=== PATIENT | female | born 2000 | race Caucasian/White ===

== ENCOUNTER 2022-12-06 15:48 | Inpatient (IN) ==
[2022-12-06 16:39] LABS: Appearance Urine Clear (Clear); Bacteria Urine Automated 1+ (Negative); Bilirubin Urine Negative (Negative); Blood Urine 1+ (Negative); Color Urine Yellow; Epithelial Cell Urine Auto >30 /lpf (0-5); Glucose Urine UA Negative (Negative); Ketones Urine Negative (Negative); Leukocyte Esterase Urine Negative (Negative); Nitrite Urine Negative (Negative); Protein Urine Negative (Negative); Specific Gravity Urine 1.017 (1.000-1.030); Urobilinogen Urine Negative (Negative)
--- NOTE | 2022-12-06 16:47 | Emergency Department Note ---
Impression & Plan Mood disorder, Suicidal ideation ED Provider Note INFORMANT: Patient ED PROVIDER(S): Yuval Queen MD CHIEF COMPLAINT: Suicidal ideation PLAN: Disposition: Admitted to [facility]. Condition: Good Outpatient prescription management: none Referral: None MEDICAL DECISION MAKING: Patient was evaluated. History of depression. Outpatient treatment with Zoloft has not been helping despite increase in dose. The patient had blood work obtained. Her wounds were minor. They were cleansed and bandaged. Patient's laboratory testing was unremarkable. Toxicology screen was negative. Patient was referred to [facility] mental health. Patient was excepted for inpatient psychiatric treatment. Patient issues were discussed with the ED psychiatric case aide. After review of the information above and other included data, I feel the patient is medically clear and requires inpatient psychiatric treatment. Triage Nursing notes reviewed and agree them. Vital Signs: reviewed and remarkable for no significant abnormalities Prior /Outside records reviewed: none Differential diagnosis: Mood disorder, infection, hypoglycemia, electrolyte abnormalities, cardiac sources, intracerebral event, toxicologic, trauma, neurologic, as well as other pathologies. Diagnostics, as interpreted by me: ECG: none Cardiac Monitoring: None Medical decision rules: none Imaging studies: Deferred HPI: The patient is a 22year old female who presents to the Emergency Room with complaints of suicidal ideation. This started last night and is from an attempt at cutting her wrist. Patient notes a history of depression. She had previous suicidal thoughts in the past. She has been on Zoloft and 2 months ago it was i ncreased from 100 to 125 mg by her outpatient provider. Unfortunately she has not felt improvement.. The patient also notes the following associated symptoms, increased sleep, low energy and initiative. The patient has found no relieving factors. Current pain is rated as 0/10. Pt denies LOC, headache, fevers, chills, diaphoresis, visual changes, neck pain, chest pain, breathing difficulties, nausea, vomiting, abdominal pain, back pain, melena, hematochezia, urinary symptoms, numbness, weakness, lymphadenopathy, rash, or other complaints. PAST MEDICAL HISTORY: See Below, depression, asthma PAST SURGICAL HISTORY: See Below, SOCIAL HISTORY: See Below, occasional alcohol HOME MEDICATIONS: See Below ALLERGIES: See Below VITALS: See Below PHYSICAL EXAMINATION: GENERAL: Awake, alert, depressed-appearing, in no distress HENT: Normocephalic, atraumatic. Oropharynx unremarkable. EYES: Normal conjunctiva. Sclera non-icteric. NECK: Inspection normal. Non-tender. Supple. No nuchal rigidity. FROM. No masses. RESPIRATORY: Clear to auscultation. No wheezes. No rales. Normal respiratory effort. CARDIAC: Normal rate. Normal rhythm. No murmurs. No rubs. Extremities warm and well perfused. Pulses equal. No JVD. GI: Soft, non-distended. No tenderness to palpation. No rebound or guarding. No masses. RECTAL: Deferred. MUSCULOSKELETAL: Superficial abrasions and scratches at both wrists. Nothing r equiring suturing or involvement of deep structures. Otherwise atraumatic. Chest examination reveals no tenderness. The back is symmetrical on inspection without obvious abnormality. There is no CVA tenderness to palpation. No joint edema. LOWER EXTREMITIES: Calves are equal size bilaterally and non-tender. No edema. No discoloration. NEURO: Normal sensorium. No sensory or motor deficits noted. SKIN: No rash or jaundice noted. PSYCH: Depressed mood and flat affect. Positive SI. No HI or delusions. Past Med/Surg History Social History Smoking Status: Never smoker Preferred Language: Bolivian Communication Ability: Effective Scow Hand Required: No Beliefs That Will Affect Care: None Feels Safe at Home: Yes Gender Identity: Female Assistive Devices: None Allergies Allergies Allergy/AdvReac Type Severity Reaction Status Date / Time dairy Allergy Uncoded 12/06/22 21:43 Home Meds Home Medications Medication Instructions Recorded Confirmed cetirizine 5 mg tablet 5 mg PO HS 12/06/22 12/06/22 sertraline 100 mg tablet (Zoloft) 125 mg PO HS 12/06/22 12/06/22 Results & Data (ED) Vital Signs Vital Signs - 24 hr 12/06/22 15:54 Temperature 36.6 C Temperature Source Temporal Artery Scan Pulse Rate 76 Respiratory Rate 20 Respiratory Effort / Characteristics Non-Labored Spontaneous Respiratory Depth Normal Blood Pressure 141/97 H Blood Pressure Mean 111 Pulse Oximetry 99 Oxygen Delivery Method Room Air Sepsis New/Unexplained Change in Mental Status N/A Sepsis Action Taken by Nursing No Action Required Laboratory Data 12/06/22 16:48 12/06/22 16:48 Lab Results 12/06/22 12/06/22 12/06/22 Range/Units 16:05 16:05 16:40 WBC (4.8-10.8) K/ul RBC (4.20-5.40) M/uL Hgb (12.0-16.0) g/dl Hct (37.0-47.0) % MCV (80.0-100.0) fL MCH (25.0-34.0) pg MCHC (32.0-36.0) g/dL RDW Std Deviation (36.4-46.3) fL RDW Coeff of Amanda (11.5-14.5) % Plt Count (130-400) K/uL MPV (9.4-12.4) fL Immature Gran % (Auto) % Neut % (Auto) % Lymph % (Auto) % [place] % (Auto) % Eos % (Auto) % Baso % (Auto) % Neut # (Auto) (1.40-6.50) K/uL Lymph # (Auto) (1.2-3.4) K/uL [place] # (Auto) (0.11-0.59) K/uL Eos # (Auto) (0-0.50) K/uL Baso # (Auto) (0-0.2) K/uL Immature Gran # (Auto) (0.01-0.20) K/uL Sodium (136-145) mmol/L Potassium (3.5-5.1) mmol/L Chloride (98-107) mmol/L Carbon Dioxide (21-32) mmol/L Anion Gap (3-11) BUN (6-23) mg/dl Creatinine (0.6-1.2) mg/dl Est Cr Clr Drug Dosing ml/min Est GFR ( Amer) ml/min Est GFR (Non-Af Amer) ml/min BUN/Creatinine Ratio (10-20) Glucose (70-99(Fasting)) mg/dl Calcium (8.5-10.1) mg/dl Total Bilirubin (0.2-1.0) mg/dl AST (13-39) U/L ALT (7-52) U/L Alkaline Phosphatase (34-104) U/L Total Protein (6.0-8.3) gm/dl Albumin (3.4-5.0) gm/dl Globulin (2.5-4.0) gm/dl Albumin/Globulin Ratio (0.9-2) TSH (0.300-4.500) uIu/ml HCG, Qual (Negative) Urine Color Yellow Urine Appearance Clear (Clear) Urine pH 7.0 (4.5-7.5) Ur Specific [place] 1.017 (1.000-1.030) Urine Protein Negative (Negative) Urine Glucose (UA) Negative (Negative) Urine Ketones Negative (Negative) Urine Blood 1+ H (Negative) Urine Nitrite Negative (Negative) Urine Bilirubin Negative (Negative) Urine Urobilinogen Negative (Negative) Ur Leukocyte Esterase Negative (Negative) Urine WBC (Auto) 1-5 (0-5) /hpf Urine RBC (Auto) 10-30 H (0-4) /hpf U Hyaline Cast (Auto) 1-5 (0-5) /lpf U Epithel Cells (Auto) >30 H (0-5) /lpf Urine Bacteria (Auto) 1+ H (Negative) Salicylates (3.0-30) mg/dl Urine Opiates Screen Neg (Neg) Ur Methadone, Qual Neg (Neg) Acetaminophen (10-30) ug/ml Urine Barbiturates Neg (Neg) Ur Phencyclidine (PCP) Neg (Neg) U Amphetamin/Meth Scrn Neg (Neg) MDMA (Ecstasy) Screen Neg (Neg) U Benzodiazepines Scrn Neg (Neg) Ur Cocaine Metabolite Neg (Neg) U Marijuana (THC) Screen Neg (Neg) Ethyl Alcohol mg/dL (<10.0) mg/dl SARS-CoV-2, RNA, NAAT NEGATIVE (NEGATIVE) 12/06/22 12/06/22 12/06/22 Range/Units 16:48 16:48 16:48 WBC 8.08 (4.8-10.8) K/ul RBC 4.59 (4.20-5.40) M/uL Hgb 13.3 (12.0-16.0) g/dl Hct 38.8 (37.0-47.0) % MCV 84.5 (80.0-100.0) fL MCH 29.0 (25.0-34.0) pg MCHC 34.3 (32.0-36.0) g/dL RDW Std Deviation 36.9 (36.4-46.3) fL RDW Coeff of Amanda 12.2 (11.5-14.5) % Plt Count 340 (130-400) K/uL MPV 9.2 L (9.4-12.4) fL Immature Gran % (Auto) 0.1 % Neut % (Auto) 68.4 % Lymph % (Auto) 22.6 % [place] % (Auto) 7.4 % Eos % (Auto) 1.1 % Baso % (Auto) 0.4 % Neut # (Auto) 5.52 (1.40-6.50) K/uL Lymph # (Auto) 1.83 (1.2-3.4) K/uL [place] # (Auto) 0.60 H (0.11-0.59) K/uL Eos # (Auto) 0.09 (0-0.50) K/uL Baso # (Auto) 0.03 (0-0.2) K/uL Immature Gran # (Auto) 0.01 (0.01-0.20) K/uL Sodium 140 (136-145) mmol/L Potassium 4.3 (3.5-5.1) mmol/L Chloride 105 (98-107) mmol/L Carbon Dioxide 29 (21-32) mmol/L Anion Gap 6 (3-11) BUN 6 (6-23) mg/dl Creatinine 0.59 L (0.6-1.2) mg/dl Est Cr Clr Drug Dosing 123.2 ml/min Est GFR ( Amer) > 150.0 ml/min Est GFR (Non-Af Amer) 131.0 ml/min BUN/Creatinine Ratio 10.2 (10-20) Glucose 94 (70-99(Fasting)) mg/dl Calcium 10.0 (8.5-10.1) mg/dl Total Bilirubin 0.6 (0.2-1.0) mg/dl AST 18 (13-39) U/L ALT 12 (7-52) U/L Alkaline Phosphatase 66 (34-104) U/L Total Protein 7.7 (6.0-8.3) gm/dl Albumin 4.9 (3.4-5.0) gm/dl Globulin 2.8 (2.5-4.0) gm/dl Albumin/Globulin Ratio 1.8 (0.9-2) TSH 1.020 (0.300-4.500) uIu/ml HCG, Qual (Negative) Urine Color Urine Appearance (Clear) Urine pH (4.5-7.5) Ur Specific [place] (1.000-1.030) Urine Protein (Negative) Urine Glucose (UA) (Negative) Urine Ketones (Negative) Urine Blood (Negative) Urine Nitrite (Negative) Urine Bilirubin (Negative) Urine Urobilinogen (Negative) Ur Leukocyte Esterase (Negative) Urine WBC (Auto) (0-5) /hpf Urine RBC (Auto) (0-4) /hpf U Hyaline Cast (Auto) (0-5) /lpf U Epithel Cells (Auto) (0-5) /lpf Urine Bacteria (Auto) (Negative) Salicylates (3.0-30) mg/dl Urine Opiates Screen (Neg) Ur Methadone, Qual (Neg) Acetaminophen (10-30) ug/ml Urine Barbiturates (Neg) Ur Phencyclidine (PCP) (Neg) U Amphetamin/Meth Scrn (Neg) MDMA (Ecstasy) Screen (Neg) U Benzodiazepines Scrn (Neg) Ur Cocaine Metabolite (Neg) U Marijuana (THC) Screen (Neg) Ethyl Alcohol mg/dL (<10.0) mg/dl SARS-CoV-2, RNA, NAAT (NEGATIVE) 12/06/22 12/06/22 12/06/22 Range/Units 16:48 16:48 16:48 WBC (4.8-10.8) K/ul RBC (4.20-5.40) M/uL Hgb (12.0-16.0) g/dl Hct (37.0-47.0) % MCV (80.0-100.0) fL MCH (25.0-34.0) pg MCHC (32.0-36.0) g/dL RDW Std Deviation (36.4-46.3) fL RDW Coeff of Amanda (11.5-14.5) % Plt Count (130-400) K/uL MPV (9.4-12.4) fL Immature Gran % (Auto) % Neut % (Auto) % Lymph % (Auto) % [place] % (Auto) % Eos % (Auto) % Baso % (Auto) % Neut # (Auto) (1.40-6.50) K/uL Lymph # (Auto) (1.2-3.4) K/uL [place] # (Auto) (0.11-0.59) K/uL Eos # (Auto) (0-0.50) K/uL Baso # (Auto) (0-0.2) K/uL Immature Gran # (Auto) (0.01-0.20) K/uL Sodium (136-145) mmol/L Potassium (3.5-5.1) mmol/L Chloride (98-107) mmol/L Carbon Dioxide (21-32) mmol/L Anion Gap (3-11) BUN (6-23) mg/dl Creatinine (0.6-1.2) mg/dl Est Cr Clr Drug Dosing ml/min Est GFR ( Amer) ml/min Est GFR (Non-Af Amer) ml/min BUN/Creatinine Ratio (10-20) Glucose (70-99(Fasting)) mg/dl Calcium (8.5-10.1) mg/dl Total Bilirubin (0.2-1.0) mg/dl AST (13-39) U/L ALT (7-52) U/L Alkaline Phosphatase (34-104) U/L Total Protein (6.0-8.3) gm/dl Albumin (3.4-5.0) gm/dl Globulin (2.5-4.0) gm/dl Albumin/Globulin Ratio (0.9-2) TSH (0.300-4.500) uIu/ml HCG, Qual Negative (Negative) Urine Color Urine Appearance (Clear) Urine pH (4.5-7.5) Ur Specific [place] (1.000-1.030) Urine Protein (Negative) Urine Glucose (UA) (Negative) Urine Ketones (Negative) Urine Blood (Negative) Urine Nitrite (Negative) Urine Bilirubin (Negative) Urine Urobilinogen (Negative) Ur Leukocyte Esterase (Negative) Urine WBC (Auto) (0-5) /hpf Urine RBC (Auto) (0-4) /hpf U Hyaline Cast (Auto) (0-5) /lpf U Epithel Cells (Auto) (0-5) /lpf Urine Bacteria (Auto) (Negative) Salicylates < 3.0 L (3.0-30) mg/dl Urine Opiates Screen (Neg) Ur Methadone, Qual (Neg) Acetaminophen < 3 L (10-30) ug/ml Urine Barbiturates (Neg) Ur Phencyclidine (PCP) (Neg) U Amphetamin/Meth Scrn (Neg) MDMA (Ecstasy) Screen (Neg) U Benzodiazepines Scrn (Neg) Ur Cocaine Metabolite (Neg) U Marijuana (THC) Screen (Neg) Ethyl Alcohol mg/dL < 10.0 (<10.0) mg/dl SARS-CoV-2, RNA, NAAT (NEGATIVE) Administered Medications Bupropion HCl (Bupropion Xl 150 Mg Tabcr) 150 mg PO QAM CHRIS Stop: 01/06/23 10:59 Last Admin: 12/07/22 12:00 Dose: 150 mg Documented By: BNT Hydroxyzine HCl (Hydroxyzine Hcl 25 Mg Tab) 50 mg PO HSZ PRN PRN Reason: Insomnia Stop: 01/05/23 20:37 Last Admin: 12/06/22 22:42 Dose: 50 mg Documented By: RDS Discharge Plan Visit Data Chief Complaint: Mental Health Evaluation Stated Complaint: ATTEMPTED SUICIDE ED Provider: Yuval Queen Discharge Problem: Mood disorder, Suicidal ideation Patient Disposition: Admitted As Inpatient Discharge Instructions Interventions: ED Discharge Assessment Last Done: 12/06/22 19:52
[2022-12-06 17:11] LABS: Amphetamines+Metham, Urine Neg (Neg); Barbiturates, Urine Neg (Neg); Benzodiazepine, Urine Neg (Neg); Cocaine, Urine Neg (Neg); MDMA (Ecstacy), Urine Neg (Neg); Methadone, Urine Neg (Neg); Opiate, Urine Neg (Neg); Phencyclidine, Urine Neg (Neg)
[2022-12-06 17:19] LABS: Basophils # (auto) 0.03 K/uL (0-0.2); Basophils % (auto) 0.4 %; Eosinophils # (auto) 0.09 K/uL (0-0.50); Eosinophils % (auto) 1.1 %; Hematocrit (blood only) 38.8 % (37.0-47.0); Hemoglobin 13.3 g/dl (12.0-16.0); Immature Granulocytes # (auto) 0.01 K/uL (0.01-0.20); Immature Granulocytes % (auto) 0.1 %; Lymphocytes # (auto) 1.83 K/uL (1.2-3.4); Lymphocytes % (auto) 22.6 %; Mean Corpuscular Hgb Conc 34.3 g/dL (32.0-36.0); Mean Corpuscular Volume 84.5 fL (80.0-100.0); Mean Platelet Volume 9.2 fL (9.4-12.4); Monocytes % (auto) 7.4 %; Neutrophils # (auto) 5.52 K/uL (1.40-6.50); Neutrophils % (auto) 68.4 %; Platelet Count 340 K/uL (130-400); RDW Coefficient of Variation 12.2 % (11.5-14.5); RDW Standard Deviation 36.9 fL (36.4-46.3); Red Blood Count 4.59 M/uL (4.20-5.40); White Blood Count 8.08 K/ul (4.8-10.8)
[2022-12-06 17:34] LABS: Acetaminophen < 3 ug/ml (10-30); Salicylate < 3.0 mg/dl (3.0-30)
[2022-12-06 17:37] LABS: Alanine Aminotransferase 12 U/L (7-52); Albumin Globulin Ratio 1.8 (0.9-2); Albumin Level 4.9 gm/dl (3.4-5.0); Alkaline Phosphatase 66 U/L (34-104); Anion Gap 6 (3-11); Aspartate Aminotransferase 18 U/L (13-39); BUN Creatinine Ratio 10.2 (10-20); Bilirubin,Total 0.6 mg/dl (0.2-1.0); Blood Urea Nitrogen 6 mg/dl (6-23); Carbon Dioxide 29 mmol/L (21-32); Chloride 105 mmol/L (98-107); Creatinine Clr Calc Pharmacy 123.2 ml/min; Est GFR (African American) > 150.0 ml/min; Globulin 2.8 gm/dl (2.5-4.0); Glucose 94 mg/dl (70-99(Fasting)); Potassium 4.3 mmol/L (3.5-5.1); Sodium 140 mmol/L (136-145); Total Protein 7.7 gm/dl (6.0-8.3)
[2022-12-06 17:43] LABS: Pregnancy Test, Serum Negative (Negative)
[2022-12-06] MEDS ORDERED: hydrOXYzine HCl 25 MG TAB PO PRN (20:38)
[2022-12-06] MEDS ORDERED: ACETAMINOPHEN 325 MG TAB PO PRN (20:38)
[2022-12-06] MEDS ORDERED: MAGNESIUM HYDROXIDE SUSP 30 ML UDC PO PRN (20:38)
[2022-12-06] MEDS ORDERED: SODIUM CHLORIDE 0.65% NA SOLN 45 ML (OCEAN) PRN (20:38)
[2022-12-06] MEDS ORDERED: BISMUTH SUBSALICYLATE LIQD 236 ML PO PRN (20:38)
[2022-12-06] MEDS ORDERED: ALUMINUM/MAGNESIUM SUSP 30 ML UDC PO PRN (20:38)
[2022-12-06] MEDS: hydrOXYzine HCl 25 MG TAB PO PRN (22:42)
--- NOTE | 2022-12-07 09:04 | History & Physical ---
Date of Service December 07, 2022 Impression / Recommendations Impression 12/07/2022: Previous response to low-dose sertraline with recent worsening. * Discussed dose increase from 125 mg to 150 mg/day or titration 200 mg/day (well-tolerated at current dose, evidence of benefit until recently) * Discussed augmentation strategies: * - folic acid 1 mg daily (very low risk, shown to have significant benefit with fluoxetine but not studied with sertraline) * - bupropion XL 150 mg daily (additional mechanism of action, potential beneficial side effects such as energy or concentration, risk of seizures with excessive dose) * Discussed switching to alternate antidepressant: * - alternate SSRI such as escitalopram (evidence of benefit with previous SSRI trial) * - SNRI such as duloxetine (additional mechanism of action, higher efficacy than SSRI, risk of Htn, risk of discontinuation Sx) (1) Major depressive disorder, recurrent, severe without psychotic features: Plan 12/07/2022: * increase sertraline to 1 mg daily (primarily to simplify home regimen) * add bupropion XL 150 mg daily * additional lab: Vitamin B12, folic acid, 25-OH vitamin D, Mg, Phos., ESR Inventory Assets Strengths: able to verbalize symptoms and needs, social support, intelligence Needs: feels isolated despite good social network Suicide Risk Level Suicide Risk Level: Moderate (q15 min suicide checks) Risk Factors Assessment Male: No : Yes Do You Have Access To A Gun?: No Health Problems: No Mental Health Diagnoses: Yes Substance Use Disorders: No Previous Attempt: No Family History of Suicide: No Previous Psychiatric Hospitalization: No Protective Factors Assessment Stable Relationships: Yes Good Rapport with Provider: Yes Psychiatric History Identifying Data CHRISTINE MOE is a 22-year-old F who currently lives in an apartment with 3 roommates, has a history of major depression, and was admitted on 12/06/22 19:47 on a 201 voluntary commitment for suicidal behavior. Chief Complaint "I tried to kill myself". 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 The night before last (on 05 December 2022) she tried to kill herself by cutting both volar forearms with a razor. She cites a number of stressors' coming to a head, including the illness of her beloved grandfather, her ex-boyfriend (with whom she's "remained friends") ignoring her, and the impending end of her university years and the need to make employment plans. 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 She began feeling overwhelmed and cut her arms. She says she's been cutting since her mid-teens but "it's never been suicidal", only to relieve anxiety. She found that cutting herself with the inte ntion of suicide was frightening. When her roommates saw the cuts yesterday they insisted she go the ED for assessment. At this point, pt denies active suicidality, but feels sad, anxious, and "negat stacey". She's had initial and middle insomnia. Her appetite is reduced, though there's been no weight change. Energy is poor. Pt reports that when she first started sertraline, prescribed by her pediat rician, a bit over 2 years ago "it really seemed to help" but that over the past few months "it hasn't seemed like it was working". The mail machine operator increased the dose to 125 mg about 2 weeks ago. She reports no benefit, nor does she attribute any effects to this medicaiton. She's never used any other psychiatric medication. She uses magnesium to reduce migraine frequency. Past Psychiatric History Previous Psych History: depression treated by mail machine operator x 2 years Current Psychiatric Diagnosis: Depression, Anxiety Previous Psych Admissions: none Do You Have Access To A Gun?: No History of Previous Suicide Attempt: Yes Past Medication Trials: none besides sertraline Allergies Allergy/AdvReac Type Severity Reaction Status Date / Time dairy Allergy Uncoded 12/06/22 21:43 Home Medications Medication Instructions Recorded Confirmed Type cetirizine 5 mg tablet 5 mg PO HS 12/06/22 12/06/22 History sertraline 100 mg tablet (Zoloft) 125 mg PO HS 12/06/22 12/06/22 History Family History Family History of: Doesn't Know Family Mental Health History Comment: strong undiagnosed mental health maternal side of family Alcohol History Hx of Alcohol Use Over the Past 12 Months: Yes (drinks every weekend with friends) AUDIT Total Score: 4 Smoking Use Have You Smoked or Used Tobacco Products in the Last 30 Days: No Smoking Status: Never smoker Substance History Hx of Prescription Med Misuse Over the Past 12 Months: No Hx of Over the Counter Med Misuse Over the Past 12 Months: No Hx of Inhalent Misuse Over the Past 12 Months: No Hx of Organic Substance Use Over the Past 12 Months: No Hx of Illegal Substances/Street Drug Use Over Past 12 Months: No Problems as a Result of Past Substance Use: None Identified Personal History Living Arrangements: Apartment Beliefs That Will Affect Care: None Patient History Social History Smoking Status: Never smoker Preferred Language: Syrian Communication Ability: Effective Poultry Grader Required: No Beliefs That Will Affect Care: None Feels Safe at Home: Yes Gender Identity: Female Assistive Devices: None Physical Exam Psychiatric: Orientation: alert, oriented to person, oriented to place and oriented to time Apperance: appropriately dressed, appropriately groomed and appeared stated age Eye Contact: + fair eye contact Motor Behavior: + psychomotor retardation slow, quiet, brief, uninflected Affect: + constricted affect Mood: + depressed mood and + anxious mood Thought Process: goal directed thought process, linear/logical thought process and clear/coherent thought process Thought Content: + cognitive distortions and + loneliness; no preoccupation, no obsessions, no compulsions, no delusions and no ideas of reference Suicidal Thoughts: denies suicidal plan and denies suicidal intent; + reports suicidal thoughts Homicidal Thoughts: denies homicidal thoughts Hallucinations: no auditory hallucinations and no visual hallucinations Cognition: recent memory grossly intact, remote memory grossly intact and attention grossly intact Estimated Intelligence: average estimated intelligence Insight: + fair insight Judgment: good judgement Vital Signs (Past 24 Hours): Last Vital Signs Temp 36.8 C 12/07/22 06:36 Pulse 65 12/07/22 06:37 Resp 16 12/07/22 06:36 BP 103/68 12/07/22 06:37 Pulse Ox 99 12/06/22 20:22 O2 Del Method Room Air 12/06/22 20:22 Exam Statement: A physical exam was performed in the ED by Dr. Queen for the purposes of medical clearance. I accept that physical as correct and adequate for the purposes of the inpatient physical exam. Results & Data ([facility]) Laboratory Results Laboratory Results - last 24 hr 12/06/22 12/06/22 12/06/22 16:05 16:05 16:40 WBC RBC Hgb Hct MCV MCH MCHC RDW Std Deviation RDW Coeff of Amanda Plt Count MPV Immature Gran % (Auto) Neut % (Auto) Lymph % (Auto) [place] % (Auto) Eos % (Auto) Baso % (Auto) Neut # (Auto) Lymph # (Auto) [place] # (Auto) Eos # (Auto) Baso # (Auto) Immature Gran # (Auto) Sodium Potassium Chloride Carbon Dioxide Anion Gap BUN Creatinine Est Cr Clr Drug Dosing Est GFR ( Amer) Est GFR (Non-Af Amer) BUN/Creatinine Ratio Glucose Calcium Total Bilirubin AST ALT Alkaline Phosphatase Total Protein Albumin Globulin Albumin/Globulin Ratio TSH HCG, Qual Urine Color Yellow Urine Appearance Clear Urine pH 7.0 Ur Specific [place] 1.017 Urine Protein Negative Urine Glucose (UA) Negative Urine Ketones Negative Urine Blood 1+ H Urine Nitrite Negative Urine Bilirubin Negative Urine Urobilinogen Negative Ur Leukocyte Esterase Negative Urine WBC (Auto) 1-5 Urine RBC (Auto) 10-30 H U Hyaline Cast (Auto) 1-5 U Epithel Cells (Auto) >30 H Urine Bacteria (Auto) 1+ H Salicylates Urine Opiates Screen Neg Ur Methadone, Qual Neg Acetaminophen Urine Barbiturates Neg Ur Phencyclidine (PCP) Neg U Amphetamin/Meth Scrn Neg MDMA (Ecstasy) Screen Neg U Benzodiazepines Scrn Neg Ur Cocaine Metabolite Neg U Marijuana (THC) Screen Neg Ethyl Alcohol mg/dL SARS-CoV-2, RNA, NAAT NEGATIVE 12/06/22 12/06/22 12/06/22 16:48 16:48 16:48 WBC 8.08 RBC 4.59 Hgb 13.3 Hct 38.8 MCV 84.5 MCH 29.0 MCHC 34.3 RDW Std Deviation 36.9 RDW Coeff of Amanda 12.2 Plt Count 340 MPV 9.2 L Immature Gran % (Auto) 0.1 Neut % (Auto) 68.4 Lymph % (Auto) 22.6 [place] % (Auto) 7.4 Eos % (Auto) 1.1 Baso % (Auto) 0.4 Neut # (Auto) 5.52 Lymph # (Auto) 1.83 [place] # (Auto) 0.60 H Eos # (Auto) 0.09 Baso # (Auto) 0.03 Immature Gran # (Auto) 0.01 Sodium 140 Potassium 4.3 Chloride 105 Carbon Dioxide 29 Anion Gap 6 BUN 6 Creatinine 0.59 L Est Cr Clr Drug Dosing 123.2 Est GFR ( Amer) > 150.0 Est GFR (Non-Af Amer) 131.0 BUN/Creatinine Ratio 10.2 Glucose 94 Calcium 10.0 Total Bilirubin 0.6 AST 18 ALT 12 Alkaline Phosphatase 66 Total Protein 7.7 Albumin 4.9 Globulin 2.8 Albumin/Globulin Ratio 1.8 TSH 1.020 HCG, Qual Urine Color Urine Appearance Urine pH Ur Specific [place] Urine Protein Urine Glucose (UA) Urine Ketones Urine Blood Urine Nitrite Urine Bilirubin Urine Urobilinogen Ur Leukocyte Esterase Urine WBC (Auto) Urine RBC (Auto) U Hyaline Cast (Auto) U Epithel Cells (Auto) Urine Bacteria (Auto) Salicylates Urine Opiates Screen Ur Methadone, Qual Acetaminophen Urine Barbiturates Ur Phencyclidine (PCP) U Amphetamin/Meth Scrn MDMA (Ecstasy) Screen U Benzodiazepines Scrn Ur Cocaine Metabolite U Marijuana (THC) Screen Ethyl Alcohol mg/dL SARS-CoV-2, RNA, NAAT 12/06/22 12/06/22 12/06/22 16:48 16:48 16:48 WBC RBC Hgb Hct MCV MCH MCHC RDW Std Deviation RDW Coeff of Amanda Plt Count MPV Immature Gran % (Auto) Neut % (Auto) Lymph % (Auto) [place] % (Auto) Eos % (Auto) Baso % (Auto) Neut # (Auto) Lymph # (Auto) [place] # (Auto) Eos # (Auto) Baso # (Auto) Immature Gran # (Auto) Sodium Potassium Chloride Carbon Dioxide Anion Gap BUN Creatinine Est Cr Clr Drug Dosing Est GFR ( Amer) Est GFR (Non-Af Amer) BUN/Creatinine Ratio Glucose Calcium Total Bilirubin AST ALT Alkaline Phosphatase Total Protein Albumin Globulin Albumin/Globulin Ratio TSH HCG, Qual Negative Urine Color Urine Appearance Urine pH Ur Specific [place] Urine Protein Urine Glucose (UA) Urine Ketones Urine Blood Urine Nitrite Urine Bilirubin Urine Urobilinogen Ur Leukocyte Esterase Urine WBC (Auto) Urine RBC (Auto) U Hyaline Cast (Auto) U Epithel Cells (Auto) Urine Bacteria (Auto) Salicylates < 3.0 L Urine Opiates Screen Ur Methadone, Qual Acetaminophen < 3 L Urine Barbiturates Ur Phencyclidine (PCP) U Amphetamin/Meth Scrn MDMA (Ecstasy) Screen U Benzodiazepines Scrn Ur Cocaine Metabolite U Marijuana (THC) Screen Ethyl Alcohol mg/dL < 10.0 SARS-CoV-2, RNA, NAAT Current Inpatient Medications Current Inpatient Medications: Current Inpatient Medications Acetaminophen (Acetaminophen 325 Mg Tab) 650 mg PO Q4H PRN PRN Reason: Headache or Minor Fever Stop: 01/05/23 20:37 Al Hydrox/Mg Hydrox/Simethicone (Aluminum/Magnesium Susp 30 Ml Udc) 30 ml PO Q4H PRN PRN Reason: GI Upset Stop: 01/05/23 20:37 Bismuth Subsalicylate (Bismuth Subsalicylate Liqd 236 Ml) 15 ml PO PRN PRN PRN Reason: Loose Stool Stop: 01/05/23 20:37 Hydroxyzine HCl (Hydroxyzine Hcl 25 Mg Tab) 25 mg PO Q4H PRN PRN Reason: Anxiety Stop: 01/05/23 20:37 Hydroxyzine HCl (Hydroxyzine Hcl 25 Mg Tab) 50 mg PO HSZ PRN PRN Reason: Insomnia Stop: 01/05/23 20:37 Last Admin: 12/06/22 22:42 Dose: 50 mg Magnesium Hydroxide (Magnesium Hydroxide Susp 30 Ml Udc) 30 ml PO DAILY PRN PRN Reason: Constipation Stop: 01/05/23 20:37 Sodium Chloride (Sodium Chloride 0.65% Na Soln 45 Ml ([place])) 1 - 2 sprays NA PRN PRN PRN Reason: Nasal Dryness/Congestion Stop: 01/05/23 20:37
[2022-12-07] MEDS: buPROPion XL 150 MG TABCR PO SCH (12:00)
[2022-12-07 13:26] LABS: Vitamin D, 25 Hydrox 13.5 ng/ml (30-100)
[2022-12-07 13:59] LABS: Magnesium 1.8 mg/dl (1.7-2.4); Phosphorus 3.6 mg/dl (2.5-4.9)
[2022-12-07] MEDS: hydrOXYzine HCl 25 MG TAB PO PRN (20:53)
[2022-12-07] MEDS ORDERED: SERTRALINE HCL 100 MG TABLET PO SCH (22:00)
[2022-12-07] MEDS ORDERED: CETIRIZINE HCL 10 MG TABLET PO SCH (22:00)
[2022-12-07] MEDS ORDERED: MAGNESIUM OXIDE 400 MG TAB PO SCH (22:00)
[2022-12-07] MEDS ORDERED: ALBUTEROL HFA 8 GM INHALER INH PRN (22:29)
[2022-12-08] MEDS: buPROPion XL 150 MG TABCR PO SCH (08:28)
--- NOTE | 2022-12-08 08:47 | Psychiatric Progress Note ---
Date of Service December 08, 2022 Impression / Recommendations Impression 12/07/2022: Previous response to low-dose sertraline with recent worsening. * Discussed dose increase from 125 mg to 150 mg/day or titration 200 mg/day (well-tolerated at current dose, evidence of benefit until recently) * Discussed augmentation strategies: * - folic acid 1 mg daily (very low risk, shown to have significant benefit with fluoxetine but not studied with sertraline) * - bupropion XL 150 mg daily (additional mechanism of action, potential beneficial side effects such as energy or concentration, risk of seizures with excessive dose) * Discussed switching to alternate antidepressant: * - alternate SSRI such as escitalopram (evidence of benefit with previous SSRI trial) * - SNRI such as duloxetine (additional mechanism of action, higher efficacy than SSRI, risk of Htn, risk of discontinuation Sx) (1) Major depressive disorder, recurrent, severe without psychotic features: Plan 12/07/2022: * increase sertraline to 1 mg daily (primarily to simplify home regimen) * add bupropion XL 150 mg daily * additional lab: Vitamin B12, folic acid, 25-OH vitamin D, Mg, Phos., ESR Inventory Assets Strengths: able to verbalize symptoms and needs, social support, intelligence Needs: feels isolated despite good social network Suicide Risk Level Suicide Risk Level: Moderate (q15 min suicide checks) Risk Factors Assessment Male: No : Yes Do You Have Access To A Gun?: No Health Problems: No Mental Health Diagnoses: Yes Substance Use Disorders: No Previous Attempt: No Family History of Suicide: No Previous Psychiatric Hospitalization: No Protective Factors Assessment Stable Relationships: Yes Good Rapport with Provider: Yes Interval History Chief Complaint "[]". Review of Systems Sleep Information Total Hours of Sleep: 7.5 Sleep Comments: Took Vistaril for sleep Meal Information Percent Meal Consumed - Breakfast: 50 Percent Meal Consumed - Lunch: 100 Percent Meal Consumed - Dinner: 95 Nutrition Comment: pt. typically does not eat breakfast Subjective Subjective Patient was seen & assessed and interval progress reviewed with [treatment team] [nursing and social work] Physical Exam Psychiatric Orientation: alert, oriented to person, oriented to place and oriented to time Apperance: appropriately dressed, appropriately groomed and appeared stated age Eye Contact: + fair eye contact Motor Behavior: + psychomotor retardation Affect: + constricted affect Mood: + depressed mood and + anxious mood Thought Process: goal directed thought process, linear/logical thought process and clear/coherent thought process Thought Content: + cognitive distortions and + loneliness; no preoccupation, no obsessions, no compulsions, no delusions and no ideas of reference Suicidal Thoughts: denies suicidal plan and denies suicidal intent; + reports suicidal thoughts Homicidal Thoughts: denies homicidal thoughts Hallucinations: no auditory hallucinations and no visual hallucinations Cognition: recent memory grossly intact, remote memory grossly intact and attention grossly intact Estimated Intelligence: average estimated intelligence Insight: + fair insight Judgment: good judgement Vital Signs (Past 24 Hours) Last Vital Signs Temp 36.6 C 12/08/22 06:35 Pulse 77 12/08/22 06:36 Resp 16 12/08/22 06:35 BP 107/69 12/08/22 06:36 Pulse Ox 99 12/06/22 20:22 O2 Del Method Room Air 12/06/22 20:22 Results & Data ([facility]) Laboratory Results Laboratory Results - last 24 hr 12/07/22 12/07/22 12/07/22 12:25 12:26 12:26 ESR 6 Phosphorus 3.6 Magnesium 1.8 Vitamin B12 393 25-OH Vitamin D Total 13.5 L Folate 10.67 Current Inpatient Medications Current Inpatient Medications: Current Inpatient Medications Acetaminophen (Acetaminophen 325 Mg Tab) 650 mg PO Q4H PRN PRN Reason: Headache or Minor Fever Stop: 01/05/23 20:37 Al Hydrox/Mg Hydrox/Simethicone (Aluminum/Magnesium Susp 30 Ml Udc) 30 ml PO Q4H PRN PRN Reason: GI Upset Stop: 01/05/23 20:37 Albuterol (Albuterol Hfa 8 Gm Inhaler) 2 puffs INH Q6 PRN PRN Reason: Shortness Of Breath Or Wheezing Stop: 01/06/23 22:28 Bismuth Subsalicylate (Bismuth Subsalicylate Liqd 236 Ml) 15 ml PO PRN PRN PRN Reason: Loose Stool Stop: 01/05/23 20:37 Bupropion HCl (Bupropion Xl 150 Mg Tabcr) 150 mg PO QAM CHRIS Stop: 01/06/23 10:59 Last Admin: 12/08/22 08:28 Dose: 150 mg Cetirizine HCl (Cetirizine Hcl 10 Mg Tablet) 5 mg PO HS CHRIS Stop: 01/06/23 21:59 Last Admin: 12/07/22 20:52 Dose: 5 mg Hydroxyzine HCl (Hydroxyzine Hcl 25 Mg Tab) 25 mg PO Q4H PRN PRN Reason: Anxiety Stop: 01/05/23 20:37 Hydroxyzine HCl (Hydroxyzine Hcl 25 Mg Tab) 50 mg PO HSZ PRN PRN Reason: Insomnia Stop: 01/05/23 20:37 Last Admin: 12/07/22 20:53 Dose: 50 mg Magnesium Hydroxide (Magnesium Hydroxide Susp 30 Ml Udc) 30 ml PO DAILY PRN PRN Reason: Constipation Stop: 01/05/23 20:37 Magnesium Oxide (Magnesium Oxide 400 Mg Tab) 400 mg PO HS CHRIS Stop: 01/06/23 21:59 Last Admin: 12/07/22 20:52 Dose: 400 mg Sertraline HCl (Sertraline Hcl 50 Mg Tablet) 150 mg PO QAM CHRIS Stop: 01/07/23 08:59 Last Admin: 12/08/22 08:28 Dose: 150 mg Sodium Chloride (Sodium Chloride 0.65% Na Soln 45 Ml (Lynn)) 1 - 2 sprays NA PRN PRN PRN Reason: Nasal Dryness/Congestion Stop: 01/05/23 20:37 Mental Health & Subst Abuse Tx Therapist Name of Therapist: N/A Post Discharge Appointments Primary Care Physician Name Of Family Doctor/PCP: Juan Daniel CASTILLO
[2022-12-08] MEDS ORDERED: SERTRALINE HCL 50 MG TABLET PO SCH (09:00)
--- NOTE | 2022-12-08 11:42 | Discharge Summary ---
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 The night before last (on 05 December 2022) she tried to kill herself by cutting both volar forearms with a razor. She cites a number of stressors' coming to a head, including the illness of her beloved grandfather, her ex-boyfriend (with whom she's "remained friends") ignoring her, and the impending end of her university years and the need to make employment plans. 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 She began feeling overwhelmed and cut her arms. She says she's been cutting since her mid-teens but "it's never been suicidal", only to relieve anxiety. She found that cutting herself with the intention of suicide was frightening. When her roommates saw the cuts yesterday they insisted she go the ED for assessment. At this point, pt denies active suicidality, but feels sad, anxious, and "negative". She's had initial and middle insomnia. Her appetite is reduced, though there's been no weight change. Energy is poor. 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 The auto body repair teacher increased the dose to 125 mg about 2 weeks ago. She reports no benefit, nor does she attribute any effects to this medicaiton. She's never used any other psy chiatric medication. She uses magnesium to reduce migraine frequency. Physical Exam Psychiatric Orientation: alert, oriented to person, oriented to place and oriented to time Apperance: appropriately dressed, appropriately groomed and appeared stated age Eye Contact: + fair eye contact Motor Behavior: + psychomotor retardation Affect: + constricted affect Mood: + depressed mood and + anxious mood Thought Process: goal directed thought process, linear/logical thought process and clear/coherent thought process Thought Content: + cognitive distortions and + loneliness; no preoccupation, no obsessions, no compulsions, no delusions and no ideas of reference Suicidal Thoughts: denies suicidal thoughts, denies suicidal plan and denies suicidal intent Homicidal Thoughts: denies homicidal thoughts Hallucinations: no auditory hallucinations and no visual hallucinations Cognition: recent memory grossly intact, remote memory grossly intact and attention grossly intact Estimated Intelligence: average estimated intelligence Insight: + fair insight Judgment: good judgement Vital Signs (Past 24 Hours) Last Vital Signs Temp 36.6 C 12/08/22 06:35 Pulse 77 12/08/22 06:36 Resp 16 12/08/22 06:35 BP 107/69 12/08/22 06:36 Pulse Ox 99 12/06/22 20:22 O2 Del Method Room Air 12/06/22 20:22 A physical exam was performed in the ED for the purposes of medical clearance. I accept that physical as correct and adequate for the purposes of the inpatient physical exam. Principal Diagnosis Recurrent major depression, severe, without psychotic features Psychiatric Data See daily stay summary. In short, safety was maintained and the patient was cooperative with care. Medication changes included addition of bupropion XL 150 mg daily and increase of sertraline to 150 mg daily and they tolerated this well. A family session was offered and safety plan was completed prior to discharge. Day of Discharge Assessment Today the patient voices readiness for discharge. They note improvement in mood and deny thoughts to harm self or others. Thoughts remain organized and they are improved from admission. There is no evidence of psychosis. They agree to take mediations as prescribed and keep follow-up appointments. They are stable for discharge to outpatient level of care. Advance Directives Advance Directives Information Provided: Yes Advance Directives: No Mental Health Advance Directive: No Advance Directives on File: No Living Will: No Power of Car Pilot: No Advance Directives Reason:: Declines as Mental Health Visit. Risk Factors Assessment Male: No : Yes Do You Have Access To A Gun?: No Health Problems: No Mental Health Diagnoses: Yes Substance Use Disorders: No Previous Attempt: No Family History of Suicide: No Previous Psychiatric Hospitalization: No Protective Factors Assessment Stable Relationships: Yes Good Rapport with Provider: Yes Discharge Data Lab Results 12/06/22 12/06/22 12/06/22 16:05 16:05 16:40 WBC RBC Hgb Hct MCV MCH MCHC RDW Std Deviation RDW Coeff of Amanda Plt Count MPV Immature Gran % (Auto) Neut % (Auto) Lymph % (Auto) [place] % (Auto) Eos % (Auto) Baso % (Auto) Neut # (Auto) Lymph # (Auto) [place] # (Auto) Eos # (Auto) Baso # (Auto) Immature Gran # (Auto) ESR Sodium Potassium Chloride Carbon Dioxide Anion Gap BUN Creatinine Est Cr Clr Drug Dosing Est GFR ( Amer) Est GFR (Non-Af Amer) BUN/Creatinine Ratio Glucose Calcium Phosphorus Magnesium Total Bilirubin AST ALT Alkaline Phosphatase Total Protein Albumin Globulin Albumin/Globulin Ratio Vitamin B12 25-OH Vitamin D Total Folate TSH HCG, Qual Urine Color Yellow Urine Appearance Clear Urine pH 7.0 Ur Specific [place] 1.017 Urine Protein Negative Urine Glucose (UA) Negative Urine Ketones Negative Urine Blood 1+ H Urine Nitrite Negative Urine Bilirubin Negative Urine Urobilinogen Negative Ur Leukocyte Esterase Negative Urine WBC (Auto) 1-5 Urine RBC (Auto) 10-30 H U Hyaline Cast (Auto) 1-5 U Epithel Cells (Auto) >30 H Urine Bacteria (Auto) 1+ H Salicylates Urine Opiates Screen Neg Ur Methadone, Qual Neg Acetaminophen Urine Barbiturates Neg Ur Phencyclidine (PCP) Neg U Amphetamin/Meth Scrn Neg MDMA (Ecstasy) Screen Neg U Benzodiazepines Scrn Neg Ur Cocaine Metabolite Neg U Marijuana (THC) Screen Neg Ethyl Alcohol mg/dL SARS-CoV-2, RNA, NAAT NEGATIVE 12/06/22 12/06/22 12/06/22 16:48 16:48 16:48 WBC 8.08 RBC 4.59 Hgb 13.3 Hct 38.8 MCV 84.5 MCH 29.0 MCHC 34.3 RDW Std Deviation 36.9 RDW Coeff of Amanda 12.2 Plt Count 340 MPV 9.2 L Immature Gran % (Auto) 0.1 Neut % (Auto) 68.4 Lymph % (Auto) 22.6 [place] % (Auto) 7.4 Eos % (Auto) 1.1 Baso % (Auto) 0.4 Neut # (Auto) 5.52 Lymph # (Auto) 1.83 [place] # (Auto) 0.60 H Eos # (Auto) 0.09 Baso # (Auto) 0.03 Immature Gran # (Auto) 0.01 ESR Sodium 140 Potassium 4.3 Chloride 105 Carbon Dioxide 29 Anion Gap 6 BUN 6 Creatinine 0.59 L Est Cr Clr Drug Dosing 123.2 Est GFR ( Amer) > 150.0 Est GFR (Non-Af Amer) 131.0 BUN/Creatinine Ratio 10.2 Glucose 94 Calcium 10.0 Phosphorus Magnesium Total Bilirubin 0.6 AST 18 ALT 12 Alkaline Phosphatase 66 Total Protein 7.7 Albumin 4.9 Globulin 2.8 Albumin/Globulin Ratio 1.8 Vitamin B12 25-OH Vitamin D Total Folate TSH 1.020 HCG, Qual Urine Color Urine Appearance Urine pH Ur Specific [place] Urine Protein Urine Glucose (UA) Urine Ketones Urine Blood Urine Nitrite Urine Bilirubin Urine Urobilinogen Ur Leukocyte Esterase Urine WBC (Auto) Urine RBC (Auto) U Hyaline Cast (Auto) U Epithel Cells (Auto) Urine Bacteria (Auto) Salicylates Urine Opiates Screen Ur Methadone, Qual Acetaminophen Urine Barbiturates Ur Phencyclidine (PCP) U Amphetamin/Meth Scrn MDMA (Ecstasy) Screen U Benzodiazepines Scrn Ur Cocaine Metabolite U Marijuana (THC) Screen Ethyl Alcohol mg/dL SARS-CoV-2, RNA, NAAT 12/06/22 12/06/22 12/06/22 16:48 16:48 16:48 WBC RBC Hgb Hct MCV MCH MCHC RDW Std Deviation RDW Coeff of Amanda Plt Count MPV Immature Gran % (Auto) Neut % (Auto) Lymph % (Auto) [place] % (Auto) Eos % (Auto) Baso % (Auto) Neut # (Auto) Lymph # (Auto) [place] # (Auto) Eos # (Auto) Baso # (Auto) Immature Gran # (Auto) ESR Sodium Potassium Chloride Carbon Dioxide Anion Gap BUN Creatinine Est Cr Clr Drug Dosing Est GFR ( Amer) Est GFR (Non-Af Amer) BUN/Creatinine Ratio Glucose Calcium Phosphorus Magnesium Total Bilirubin AST ALT Alkaline Phosphatase Total Protein Albumin Globulin Albumin/Globulin Ratio Vitamin B12 25-OH Vitamin D Total Folate TSH HCG, Qual Negative Urine Color Urine Appearance Urine pH Ur Specific [place] Urine Protein Urine Glucose (UA) Urine Ketones Urine Blood Urine Nitrite Urine Bilirubin Urine Urobilinogen Ur Leukocyte Esterase Urine WBC (Auto) Urine RBC (Auto) U Hyaline Cast (Auto) U Epithel Cells (Auto) Urine Bacteria (Auto) Salicylates < 3.0 L Urine Opiates Screen Ur Methadone, Qual Acetaminophen < 3 L Urine Barbiturates Ur Phencyclidine (PCP) U Amphetamin/Meth Scrn MDMA (Ecstasy) Screen U Benzodiazepines Scrn Ur Cocaine Metabolite U Marijuana (THC) Screen Ethyl Alcohol mg/dL < 10.0 SARS-CoV-2, RNA, NAAT 12/07/22 12/07/22 12/07/22 12:25 12:26 12:26 WBC RBC Hgb Hct MCV MCH MCHC RDW Std Deviation RDW Coeff of Amanda Plt Count MPV Immature Gran % (Auto) Neut % (Auto) Lymph % (Auto) [place] % (Auto) Eos % (Auto) Baso % (Auto) Neut # (Auto) Lymph # (Auto) [place] # (Auto) Eos # (Auto) Baso # (Auto) Immature Gran # (Auto) ESR 6 Sodium Potassium Chloride Carbon Dioxide Anion Gap BUN Creatinine Est Cr Clr Drug Dosing Est GFR ( Amer) Est GFR (Non-Af Amer) BUN/Creatinine Ratio Glucose Calcium Phosphorus 3.6 Magnesium 1.8 Total Bilirubin AST ALT Alkaline Phosphatase Total Protein Albumin Globulin Albumin/Globulin Ratio Vitamin B12 393 25-OH Vitamin D Total 13.5 L Folate 10.67 TSH HCG, Qual Urine Color Urine Appearance Urine pH Ur Specific [place] Urine Protein Urine Glucose (UA) Urine Ketones Urine Blood Urine Nitrite Urine Bilirubin Urine Urobilinogen Ur Leukocyte Esterase Urine WBC (Auto) Urine RBC (Auto) U Hyaline Cast (Auto) U Epithel Cells (Auto) Urine Bacteria (Auto) Salicylates Urine Opiates Screen Ur Methadone, Qual Acetaminophen Urine Barbiturates Ur Phencyclidine (PCP) U Amphetamin/Meth Scrn MDMA (Ecstasy) Screen U Benzodiazepines Scrn Ur Cocaine Metabolite U Marijuana (THC) Screen Ethyl Alcohol mg/dL SARS-CoV-2, RNA, NAAT Hospital Course (1) Major depressive disorder, recurrent, severe without psychotic features: Plan Continue added bupropion XL 150 mg daily and increased sertraline 150 mg daily Mental Health & Subst Abuse Tx Therapist Name of Therapist: N/A Post Discharge Appointments Primary Care Physician Name Of Family Doctor/PCP: Juan Daniel CASTILLO Other #1: Name of Aftercare Appointment: [facility] Phone Number of Aftercare Appointment: [phone] Aftercare Appointment Comment: Please call to schedule intake for intensive outpatient treatment. #2: Name of Aftercare Appointment: [employer] - Office of Student Care and Advocacy. Phone Number of Aftercare Appointment: [phone] Time of Aftercare Appointment: A follow-up appointment with a patient care will be scheduled. Aftercare Appointment Comment: Please check your [employer] email for appointment date, time, and link. Discharge Plan Discharge Items Patient Disposition: Home - Self-Care Reason For Visit: SUICIDAL IDEATION Discharge Diagnosis: Recurrent Major Depression, Severe, without Psychotic Features Condition on Discharge: Good Activity: Resume your previous activity Non-emergency contact: Primary Care Provider and Psychiatrist Call non-emergency contact if: you have any medication questions and your symptoms worsen Follow-up/Referrals: [place] [Primary Care Provider] - Diet: Regular Addtl Attending Provider Instructions: SPECIAL CARE INSTRUCTIONS: 1. Follow through with your scheduled aftercare appointments. If unable to keep an appointment, please call to reschedule. 2. Take your medication only as prescribed. Medication should not be changed or stopped without the approval of your doctor. In the event of worsening symptoms or concerns about side effects, contact your doctor immediately. 3. Utilize new healthy coping skills, anger management skills, and stress management skills learned during your hospitalization. Journal feelings and process them with a support person. Identify stressors or situations that may result in relapse, deterioration or inappropriate behaviors and develop a plan to deal with those issues. 4. If your coping skills are ineffective and you are in crisis, contact your outpatient providers for direction. If unable to reach your providers, please call the [facility] CRISIS LINE AT , go to the [facility] walk-in center at [address] [place] [address] A, [place], or go to the closest Emergency Room. 5. Avoid alcohol and un-prescribed drugs. 6. You have been provided with the Mental Health Advance Directives Pamphlet for your review. 7. Your condition is stable for discharge to outpatient level of care, but recovery is an ongoing process. Ifthoughts to harm yourself or others return, follow the safety plan developed during your stay. Planning for a safe return home includes securing weapons. Our treatment team recommends weaponsbe removed from the home until your outpatient provider reassesses your progress. In rare cases where the items themselvescannot be removed, guns and ammunitionshould be secured separatelyand keys stored by a reliable personoutside of the home. If you were admitted on an involuntary commitment, the police or other legal authorities may be involved in this process. AFTERCARE APPOINTMENTS: * Please call your insurance company prior to your scheduled appointment to confirm your aftercare providers are covered. Take your insurance information to your appointments. WHO TO CALL AND WHEN: Medical Emergencies: For questions or emergencies related to your hospital stay, please contact the Inpatient Behavioral Health Unit at [phone]. A whitewater rafting guide is on-call 05/05 for the Behavioral Health Unit for emergencies At any time you feel your situation is an emergency, you may also call 911 immediately. Pending Studies at Discharge: No Stand-Alone Forms: My [facility] [employer], Smoking Cessation Medications and DC Order Prescriptions: New albuterol sulfate [Ventolin HFA] 90 mcg/actuation Hfa Aerosol Inhaler 2 puff inhalation Q6 PRN (Reason: shortness of breath or wheezing) 30 Days Qty: 6.7 0RF sertraline 50 mg Tablet 150 mg PO QAM 30 Days Qty: 90 0RF bupropion HCl 150 mg Tablet Extended Release 24 Hr 150 mg PO QAM 30 Days Qty: 30 0RF Continued cetirizine 5 mg Tablet 5 mg PO HS Discontinued sertraline [Zoloft] 100 mg Tablet 125 mg PO HS Discharge Orders: Discharge Order (Routine); Ordered 12/08/22 Ordered By: Santosh Kaur Admission Data Admit Date/Time: 12/06/22 19:47 Attending Provider: Santosh Kaur Admit Provider: Santosh Kaur Primary Care Provider: [facility] Other Interventions: Discharge Summary Assessment (RN) Last Done: 12/08/22 11:53 PSY Interdisciplinary Discharge Planning Last Done: 12/08/22 12:05 Coding Level of Care Code 57118 D/C day mgmt > 30 min Diagnoses Major depressive disorder, recurrent, severe without psychotic features F33.2 Time Spent (min) 42
== END 2022-12-08 15:30 | disposition home or self-care (01) | DRG 885 ==
LOC: ED 15:48 → 3S 19:47 → ED 19:52